=== PATIENT | female | born 1995 | race Caucasian/White ===

== ENCOUNTER 2018-12-16 21:28 | Emergency (ER) | payer OTHER ==
[2018-12-17] MEDS: ONDANSETRON (ODT) 4 MG TAB ODT (00:27)
[2018-12-17] MEDS: KETOROLAC 60 MG INJ IM (00:33)
[2018-12-17] MEDS: OXYCODONE/ACETAMINOPHEN (10/325) TAB PO (00:33)
== END 2018-12-17 00:49 | disposition home or self-care (01) ==
LOC: FTE 21:28
DX: M54.5 Low back pain (principal)
CPT/HCPCS: 81025; 96372; 99284-25